=== PATIENT | female | born 1940 | race Caucasian/White ===

== ENCOUNTER 2017-02-14 08:51 | Emergency (ER) | payer MEDICARE ==
[~2017-02-14] VITALS: Ht 162.6 cm; Wt 90.7 kg
[~2017-02-14 08:51] MED LIST: ALLOPURINOL100 MG PO; ANTIVERT/2525 MG PO; ASPIRIN325 M1 PO; ATORVASTATIN CA40 MG PO; BACLOFEN10 MG PO; BUSPAR 10MG TAB10 MG PO; CARAFATE1 GM PO; COQ-10100 MG PO; CRESTOR10 MG PO; DOK COLACE100 MG PO; ESCITALOPRAM10 M1 PO; FISH OIL CONC1000 MG PO; FLAGYL 500MG.500 MG PO; FLORASTOR250 MG PO; FLUOXETINE20 MG PO; FOLIC ACID 1MG T1 MG PO; GABAPENTIN100 M1 PO; HYDROCHLOROTH12.5 M2 PO; IBU-8800 MG PO; JANUVIA100 MG PO; LEVOTHYROXINE0.05 M2 PO; LEVOXYL0.05 MG PO; LEXAPRO 10 MG T10 MG PO; LIPITOR20 M1 PO; LISINOPRIL10 MG PO; LOSARTAN POTASS1 TAB PO; LOSARTAN POTASS50 MG PO; LOVASTATIN20 MG PO; MECLIZINE HYD12.5 MG PO; MIRALAX17 GM/DOSE PO; MIRALAX17 GM/PACK PO; NAPROSYN500 M1 PO; OMNICEF 300 MG300 MG PO; PANTOPRAZOLE SO40 M1 PO; PRAVASTATIN 40M40 MG PO; PRILOSEC40 MG PO; PROPRANOLOL60 MG PO; SUPER-D3+ SOFT1 EACH PO; TAMIFLU75 MG PO; TRAZODONE50 MG PO; [UNRECOGNIZED DRUG - OTHER] PO
--- NOTE | 2017-02-14 09:09 | Emergency Room Report ---
History of Present Illness Time Seen by [id number] Presenting Problem in Triage Pt arrived:Walked Presenting Problem:CONSTIPATED FOR THE PAST WEEK. 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 N Clinical Suspician of Infection? N Mental Status: 1 - Regular (Normal Baseline) Sepsis Risk:Low Sepsis Risk Have you (or family members/close friends) recently traveled outside the [place]? N If Yes, where/when: Have you had exposure to infectious disease within the past month? N TB? Other? Specify: Source patient, RN notes reviewed, family, RN/MD Exam Limitations no limitations Comment This is a 76-year-old lady arriving to the emergency room with constipation for the past 7-10 days. Patient has tried various scvb-[id number] remedies without any success. She denies having history of constipation in the past. Patient denies any abdominal pain, any weight loss, any change in her medications recently. Patient has any recent travel or exposure to sick contacts. ALLERGIES Coded Allergies: codeine (Mild, 02/08/17) Home Medications Reported Medications Levothyroxine Sodium 0.05 MG PO DAILY #30 Escitalopram Oxalate 10 MG PO DAILY #30 Rosuvastatin Calcium (Crestor) 10 MG PO QHS Gabapentin (Gabapentin 100MG) 100 MG PO BID Ubidecarenone (Coq-10) 100 MG PO DAILY D3/Red Wine/Resveratrol/Malt (Super-D3+ Softgel) 1 EACH PO DAILY Docusate Sodium (DOK) 100 MG PO DAILY Polyethylene Glycol 3350 (Miralax) 17 GM PO PRN PRN constipation History Medical History General CAD? No Angina: No [place]: No Hypertension? Yes Hyperlipidemia? No CHF? No DVT? No PE? No COPD? No Asthma? Yes Anemia? No GERD? No Gastric ulcers? No GI Bleed? No Hernia? No Thyroid Problems? Yes Hypothyroidism? Yes CVA? Yes Seizures? No Diabetes? No Insulin Dependent: No Insulin Pump: No Home FSBS? No Renal Insuffiency? No End Stage Renal Disease? No UTI? No Stones? No BPH? No GB Disease: No Nephritic Syndrome? No Asplenia? No Hepatitis? No Sickle Cell Disease? No Arthritis? No Migraines? No Cataracts? No Glaucoma? No MRSA? No HIV? No TB? No Anxiety? Yes Depression? Yes Cancer? No More? Yes Additional hx: MUSCLE TREMMORS DIVERTICULITIS Immunization Hx DT/Tetanus 5-10 Years Ago Flu 2012-FSN Pneumonia Received In Past Surgical Hx Previous Surgery?Y Hysterect Gallbladd LT & RT SHOULDER REPLACE LEFT HIP REPLACEMENT Family History Family Hx Diabetes Yes CAD Yes Hypertension Yes Hyperlipidemia Yes Cancer No TB No Social History Smoking Hx Smoker: Former Smoker Tobacco: No Alcohol Alcohol: No Review of Systems All Other Systems Reviewed and Negative Gastrointestinal constipation Physical Exam Vital Signs Vital Signs Date Time Temp Pulse Resp B/P Pulse O2 O2 Flow FiO2 Ox Delivery Rate 02/14 1119 98.3 80 18 148/71 97 / 1115 98.3 80 18 148/71 97 /05 1006 99.3 110 16 117/49 95 06/05 0855 99.3 106 16 116/45 94 General Appearance normal appearance, WD/WN, mild distress Respiratory Status Yes: trachea midline, chest symmetrical, non tender chest. No: respiratory distress. Lung Sounds bilateral: normal breath sounds, lungs clear. 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 No Comment Patient had a bowel movement after enema. Advised patient to take over-the- counter stool softeners, Colace 100 mg twice per day, and follow-up with PCP if not better. Given patient's recent development of constipation she will warrant additional investigations, including a colonoscopy, while returning to her family physician's office for re-evaluation. Results/Orders Current Medication Orders Sig/Toña Start time Last Medication Dose Route Stop Time Status Admin Ondansetron HCl 4 MG ONCE ONE 02/14 1045 DC 02/14 PO 02/14 1046 1044 Ondansetron HCl 0 .STK-MED ONE 02/14 1042 DC .ROUTE Sodium Biphosphate/ 133 ML ONCE ONE 02/14 1015 DC /05 Sodium Phosphate ID 02/14 1016 1005 Sodium Biphosphate/ 0 .STK-MED ONE 02/14 1001 DC Sodium Phosphate ID Magnesium Citrate 0 .STK-MED ONE 02/14 0944 DC PO Magnesium Citrate 1 BOT ONCE ONE 02/14 0930 DC 02/14 PO 02/14 0931 0948 Orders Procedure Date/time Status ABDOMEN-FLAT & UPRIGHT 02/14 919 Active XRAY/CT/US XRAY/CT/US XRAY acute abdominal series- consistent with constipation, otherwise negative Departure Departure Time of Disposition 1052 Disposition DC Home or Self Care(routine) Clinical Impression Primary Impression: Constipation Qualifiers: Constipation type: unspecified constipation type Qualified Code: K59.00 - Constipation, unspecified Condition STABLE Referrals DOUGLAS BEAL: Today after leaving ER Is: Schedule a follow-up appointment Patient Instructions DI for Constipation Additional Instructions Please continue the stool softener as well as laxative (MiraLAX) as previously instructed. If no better within 24 hours please follow-up with Dr. Douglas Beal (GASTROENTROLOGIST). Discharge Counseling Counseled pt/family regarding diagnosis, test results, medications/RX, home care, follow up needs Comment Please continue the stool softener as well as laxative (MiraLAX) as previously instructed. If no better within 24 hours please follow-up with Dr. Douglas Beal (GASTROENTROLOGIST). ED Critical Care Critical Care No at [id number]
--- NOTE | 2017-02-14 09:09 | Emergency Room Report ---
History of Present Illness Time Seen by [id number] Presenting Problem in Triage Pt arrived:Walked Presenting Problem:CONSTIPATED FOR THE PAST WEEK. 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 N Clinical Suspician of Infection? N Mental Status: 1 - Regular (Normal Baseline) Sepsis Risk:Low Sepsis Risk Have you (or family members/close friends) recently traveled outside the [place]? N If Yes, where/when: Have you had exposure to infectious disease within the past month? N TB? Other? Specify: Source patient, RN notes reviewed, family, RN/MD Exam Limitations no limitations Comment This is a 76-year-old lady arriving to the emergency room with constipation for the past 7-10 days. Patient has tried various bwtc-cjj-hgfqhyi remedies without any success. She denies having history of constipation in the past. Patient denies any abdominal pain, any weight loss, any change in her medications recently. Patient has any recent travel or exposure to sick contacts. ALLERGIES Coded Allergies: codeine (Mild, 02/08/17) Home Medications Reported Medications Levothyroxine Sodium 0.05 MG PO DAILY #30 Escitalopram Oxalate 10 MG PO DAILY #30 Rosuvastatin Calcium (Crestor) 10 MG PO QHS Gabapentin (Gabapentin 100MG) 100 MG PO BID Ubidecarenone (Coq-10) 100 MG PO DAILY D3/Red Wine/Resveratrol/Malt (Super-D3+ Softgel) 1 EACH PO DAILY Docusate Sodium (DOK) 100 MG PO DAILY Polyethylene Glycol 3350 (Miralax) 17 GM PO PRN PRN constipation History Medical History General CAD? No Angina: No [place]: No Hypertension? Yes Hyperlipidemia? No CHF? No DVT? No PE? No COPD? No Asthma? Yes Anemia? No GERD? No Gastric ulcers? No GI Bleed? No Hernia? No Thyroid Problems? Yes Hypothyroidism? Yes CVA? Yes Seizures? No Diabetes? No Insulin Dependent: No Insulin Pump: No Home FSBS? No Renal Insuffiency? No End Stage Renal Disease? No UTI? No Stones? No BPH? No GB Disease: No Nephritic Syndrome? No Asplenia? No Hepatitis? No Sickle Cell Disease? No Arthritis? No Migraines? No Cataracts? No Glaucoma? No MRSA? No HIV? No TB? No Anxiety? Yes Depression? Yes Cancer? No More? Yes Additional hx: MUSCLE TREMMORS DIVERTICULITIS Immunization Hx DT/Tetanus 5-10 Years Ago Flu 2012-FSN Pneumonia Received In Past Surgical Hx Previous Surgery?Y Hysterect Gallbladd LT & RT SHOULDER REPLACE LEFT HIP REPLACEMENT Family History Family Hx Diabetes Yes CAD Yes Hypertension Yes Hyperlipidemia Yes Cancer No TB No Social History Smoking Hx Smoker: Former Smoker Tobacco: No Alcohol Alcohol: No Review of Systems All Other Systems Reviewed and Negative Gastrointestinal constipation Physical Exam Vital Signs Vital Signs Date Time Temp Pulse Resp B/P Pulse O2 O2 Flow FiO2 Ox Delivery Rate 02/14 1119 98.3 80 18 148/71 97 / 1115 98.3 80 18 148/71 97 /05 1006 99.3 110 16 117/49 95 06/05 0855 99.3 106 16 116/45 94 General Appearance normal appearance, WD/WN, mild distress Respiratory Status Yes: trachea midline, chest symmetrical, non tender chest. No: respiratory distress. Lung Sounds bilateral: normal breath sounds, lungs clear. 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 No Comment Patient had a bowel movement after enema. Advised patient to take over-the- counter stool softeners, Colace 100 mg twice per day, and follow-up with PCP if not better. Given patient's recent development of constipation she will warrant additional investigations, including a colonoscopy, while returning to her family physician's office for re-evaluation. Results/Orders Current Medication Orders Sig/Toña Start time Last Medication Dose Route Stop Time Status Admin Ondansetron HCl 4 MG ONCE ONE 02/14 1045 DC 02/14 PO 02/14 1046 1044 Ondansetron HCl 0 .STK-MED ONE 02/14 1042 DC .ROUTE Sodium Biphosphate/ 133 ML ONCE ONE 02/14 1015 DC /05 Sodium Phosphate IN 02/14 1016 1005 Sodium Biphosphate/ 0 .STK-MED ONE 02/14 1001 DC Sodium Phosphate IN Magnesium Citrate 0 .STK-MED ONE 02/14 0944 DC PO Magnesium Citrate 1 BOT ONCE ONE 02/14 0930 DC 02/14 PO 02/14 0931 0948 Orders Procedure Date/time Status ABDOMEN-FLAT & UPRIGHT 02/14 919 Active XRAY/CT/US XRAY/CT/US XRAY acute abdominal series- consistent with constipation, otherwise negative Departure Departure Time of Disposition 1052 Disposition DC Home or Self Care(routine) Clinical Impression Primary Impression: Constipation Qualifiers: Constipation type: unspecified constipation type Qualified Code: K59.00 - Constipation, unspecified Condition STABLE Referrals DOUGLAS BEAL: Today after leaving ER Is: Schedule a follow-up appointment Patient Instructions DI for Constipation Additional Instructions Please continue the stool softener as well as laxative (MiraLAX) as previously instructed. If no better within 24 hours please follow-up with Dr. Douglas Beal (GASTROENTROLOGIST). Discharge Counseling Counseled pt/family regarding diagnosis, test results, medications/RX, home care, follow up needs Comment Please continue the stool softener as well as laxative (MiraLAX) as previously instructed. If no better within 24 hours please follow-up with Dr. Douglas Beal (GASTROENTROLOGIST). ED Critical Care Critical Care No at 005
--- OUTSIDE RECORDS SUMMARY | 2017-02-14 09:09 | External Medical Summary Rpt ---
Author Author , Organization [employer] Address Unknown Phone Unavailable Care Team Providers Care Data Sme Name Role Phone Daija Ortez APRN, Unavailable Unavailable Daija Bennett MD, Unavailable Unavailable Pete Bennett MD Purpose Continuity of Care Document - 01-23-2013 through 2016 Problems Code Diagnosis DOS Provider Status E11.9 TYPE 2 11-30-2016 DIABETES MELLITUS WITHOUT COMPLICATIO NS K57.92 DIVERTICULI 11-30-2016 TIS OF INTESTINE, PART UNSPECIFIED , WITHOUT PERFORATION OR ABSCESS WITHOUT BLEEDING N39.0 URINARY 11-30-2016 TRACT INFECTION, SITE NOT SPECIFIED R10.9 UNSPECIFIED 11-30-2016 ABDOMINAL PAIN Z79.4 FCI 11-30-2016 (CURRENT) USE OF INSULIN Z87.891 PERSONAL 11-30-2016 HISTORY OF NICOTINE DEPENDENCE [id number] Infectious [facility] 272.4 Hyperlipide [facility] 276.8 Hypokalemia [facility] 401.[address] [place] [address] [facility] [id number] Depression [facility] [id number] History of [facility] [id number] Acute [place] urinary [facility] tract [facility] infection [id number] Diabetes [place] mellitus [facility] type 2 [facility] [id number] Gram [place] negative [facility] septicemia [facility] 564.09 [facility]84[facility] Acute renal [place] failure [facility] F41.9 ANXIETY DISORDER, UNSPECIFIED M54.30 SCIATICA, UNSPECIFIED SIDE R10.12 LEFT UPPER QUADRANT PAIN R10.32 LEFT LOWER QUADRANT PAIN S93.401A SPRAIN OF UNSPECIFIED LIGAMENT OF RIGHT ANKLE, INIT ENCNTR V12.59 History of [facility] Allergies, Adverse Reactions, Alerts Type Drug Allergy Adverse Reaction to Substance Substance Reaction Severity Codeine PT STATES SHE GETS Unknown NAUSEATED Medications Na ND Rx Da Fi Fi Am Da Di Ph RX Ph St me C No te ll ll ou ys ag ar # ys at rm s nt no ma ic us Or Da si cy ia de te s n re d MA 00 05 1 No PA 90 -1 P 41 6- Lo 32 98 20 ng 5 26 13 er MG 1 Ac TA ti BL ve ET CE 00 05 0 No FT 40 -1 RI 97 4- Lo AX 33 20 ng ON 30 13 er E 4 1 Ac GM ti ve AL So 00 05 0 No d 07 -1 Ch 47 4- Lo lo 10 20 ng ri 11 13 er de 3 Ac 0. ti 9% ve 50 ML Ad v So 00 05 3 No d 07 -1 Ch 47 4- Lo lo 10 20 ng ri 11 13 er de 3 Ac 0. ti 9% ve 50 ML Ad v Sa 63 05 3 No li 80 -1 ne 70 4- Lo 10 20 ng Fl 07 13 er us 5 h Ac 10 ti ML ve Sy ri ng e As 51 05 3 No pi 07 -1 ri 90 4- Lo n 00 20 ng 32 52 13 er 5M 0 G Ac Ta ti bl ve et Me 63 05 3 No tr 73 -1 on 90 4- Lo id 17 20 ng az 61 13 er ol 0 e Ac 50 ti 0M ve G Ta bl et So 00 05 0 No d 07 -1 Ch 47 4- Lo lo 10 20 ng ri 11 13 er de 3 Ac 0. ti 9% ve 50 ML Ad v So 00 05 3 No d 07 -1 Ch 47 4- Lo lo 10 20 ng ri 11 13 er de 3 Ac 0. ti 9% ve 50 ML Ad v SO 00 05 0 No DI 40 -1 UM 97 4- Lo 98 20 ng CH 30 13 er LO 9 RI Ac DE ti ve 0. 9% SO ERICK TI ON SEDA 00 05 3 No L 40 -1 20 97 4- Lo 90 20 ng ME 20 13 er Q 9 IN Ac ti D5 ve W- 0. 45 % NA CL Sa 63 05 3 No li 80 -1 ne 70 4- Lo 10 20 ng Fl 07 13 er us 5 h Ac 10 ti ML ve Sy ri ng e ON 00 05 0 No DA 64 -1 NS 16 4- Lo ET 08 20 ng RO 02 13 er N 5 HC Ac L ti 4 ve MG /2 ML AL VT 00 05 0 No OM 64 -1 ET 11 4- Lo JUAREZ 49 20 ng ZI 53 13 er NE 5 Ac 25 ti ve MG /M L AM PU L FS 05 3 No -1 BL 4- Lo OO 20 ng D 13 er PALACIOS GA Ac R ti ve AL 51 05 3 No LO 07 -1 PU 90 4- Lo RI 20 20 ng NO 52 13 er L 0 10 Ac 0 ti MG ve TA BL ET As 51 05 3 No pi 07 -1 ri 90 4- Lo n 00 20 ng 32 52 13 er 5M 0 G Ac Ta ti bl ve et Me 63 05 3 No tr 73 -1 on 90 4- Lo id 17 20 ng az 61 13 er ol 0 e Ac 50 ti 0M ve G Ta bl et HU 00 05 3 No MA 00 -1 LO 27 4- Lo G 51 20 ng 10 01 13 er 0 7 UN Ac IT ti S/ ve ML AL AN 00 05 3 No TA 11 -1 CI 30 4- Lo D [address] 74 13 er US 0 Ac AN ti TI ve -G RE LF LI Q LI 00 05 3 No PI 07 -1 TO 10 4- Lo R 15 20 ng 20 64 13 er 0 MG Ac ti TA ve BL ET Vital Signs 01-26-2013 18:30 Name Value Interpretat Reference Comment ion Range Body 97.7 [degF] Temperature BP 60 mm[Hg] Diastolic BP Systolic 115 mm[Hg] Heart 74 /min Rate/Pulse Respiratory 20 /min Rate 01-26-2013 16:00 Name Value Interpretat Reference Comment ion Range O2% 94 % 01-23-2013 04:33 Name Value Interpretat Reference Comment ion Range Height 152.40 cm Weight 103.108 kg Measured 01-23-2013 01:48 Name Value Interpretat Reference Comment ion Range Body 98.6 [degF] Temperature BP 86 mm[Hg] Diastolic BP Systolic 137 mm[Hg] Heart 98 /min Rate/Pulse O2% 95 % Respiratory 20 /min Rate Weight 00 [oz_av] Measured Results Labs Lab Lab Date Result Refere Interp Status Commen Order Detail nces retati t Range on Glucose BldC Glucomtr-nc (01-26-2013 16:55) Glucose 130 70-110 complet BldC 013 mg/dl ed Glucomt 16:55 r-mCnc Glucose BldC Glucomtr-mCnc (01-26-2013 12:19) Glucose 169 70-110 complet BldC 013 mg/dl ed Glucomt 12:19 r-[facility] Glucose BldC Glucomtr-[facility] (01-26-2013 06:41) Glucose 167 70-110 complet BldC 013 mg/dl ed Glucomt 06:41 r-[facility] Glucose BldC Glucomtr-[facility] (01-25-2013 20:15) Glucose 198 70-110 complet BldC 013 mg/dl ed Glucomt 20:15 r-[facility] Glucose dC Glucomtr-[facility] (01-25-2013 16:50) Glucose 158 70-110 complet BldC 013 mg/dl ed Glucomt 16:50 r-[facility] Glucose dC Glucomtr-[facility] (01-25-2013 11:11) Glucose 132 70-110 complet BldC 013 mg/dl ed Glucomt 11:11 r-[facility] COMPREHENSIVE METABOLIC PANEL (01-25-2013 06:25) Glucose 131 74-106 complet 013 mg/dL ed Bld-mCn 06:25 c BUN 8 mg/dL 7-18 complet Bld-mCn 013 ed c 06:25 Creat 1.1 0.6-1.0 complet SerPl-m 013 mg/dL ed Cnc 06:25 ESTIMAT 75 50-200 complet ED 013 ML/MIN ed CREATIN 06:25 INE CLEARAN CE GFR 49 59- complet (ESTIMA 013 ML/MIN ed KATHI) 06:25 Sodium 139 136-145 complet SerPl-s 013 mmoL/L ed Cnc 06:25 Potassi 3.7 3.5-5.1 complet um 013 mmoL/L ed SerPl-s 06:25 Cnc Chlorid 107 98-107 complet e 013 mmoL/L ed SerPl-s 06:25 Cnc CO2 25 21.0-32 complet SerPl-s 013 mmoL/L .0 ed Cnc 06:25 Calcium 8.0 8.5-10. complet 013 mg/dL 1 ed SerPl-m 06:25 Cnc Prot 05-16-2 6.4 6.4-8.2 complet SerPl-m 013 gm/dL ed Cnc 06:25 Albumin 05-16-2 2.7 3.4-5.0 complet 013 gm/dL ed SerPl-m 06:25 Cnc Globuli 05-16-2 3.7 1.3-3.2 complet n 013 gm/dL ed Ser-mCn 06:25 c Albumin 05-16-2 0.7 UNK 1.1-1.8 complet /Glob 013 ed SerPl-m 06:25 Rto Bilirub 05-16-2 0.2 0.2-1.0 complet 013 mg/dL ed SerPl-m 06:25 Cnc AST 05-16-2 10 U/L 15-37 complet SerPl-c 013 ed Cnc 06:25 ALT 05-16-2 30 U/L 30-65 complet SerPl-c 013 ed Cnc 06:25 ALP 05-16-2 127 U/L 50-136 complet SerPl-c 013 ed Cnc 06:25 CBC with AUTO DIFF (01-25-2013 06:25) WBC # 05-16-2 5.6 4.8-10. complet Bld 013 K/MM3 8 ed Auto 06:25 RBC # 05-16-2 3.67 4.2-5.4 complet Bld 013 M/mm3 ed Auto 06:25 Hgb 05-16-2 11.7 12.2-16 complet Bld-mCn 013 g/dL .2 ed c 06:25 Hct Fr 05-16-2 36.5 % 37.0-47 complet Bld 013 .0 ed 06:25 MCV RBC 05-16-2 99.4 fl 82.2-97 complet 013 .8 ed 06:25 MCH RBC 05-16-2 32.0 pg 27-31.2 complet Qn 013 ed Auto 06:25 MEAN 05-16-2 32.2 31.8-35 complet CORPUSC 013 g/dl .4 ed ULAR 06:25 HGB CONC RDW RBC 05-16-2 14.7 % 11.5-17 complet Auto 013 .5 ed 06:25 Platele 05-16-2 205 142-424 complet t Bld 013 K/mm3 ed Ql 06:25 Manual MEAN 05-16-2 8.4 fl 7.4-10. complet PLATELE 013 4 ed T 06:25 VOLUME Granulo 05-16-2 41.0 % 37.0-80 complet cytes 013 .0 ed Fr Bld 06:25 Auto LYMPH % 05-16-2 45.8 % 10-50.0 complet 013 ed 06:25 Monocyt 05-16-2 6.7 % 1.7-9.3 complet es Fr 013 ed Bld 06:25 Auto Eosinop 05-16-2 6.1 % 0.1-12. complet hil Fr 013 0 ed Bld 06:25 Auto Basophi 05-16-2 0.3 % 0.1-2.0 complet ls Fr 013 ed Bld 06:25 Auto Granulo 05-16-2 2.3 1.8-7.8 complet cytes # 013 K/mm3 ed Bld 06:25 Auto Lymphoc 05-16-2 2.6 0.7-4.5 complet ytes Fr 013 K/mm3 ed Bld 06:25 Auto Monocyt 05-16-2 0.4 0.1-1.0 complet es # 013 K/mm3 ed Bld 06:25 Auto Eosinop 05-16-2 0.4 0.0-0.4 complet hil # 013 K/mm3 ed Bld 06:25 Auto Basophi 05-16-2 0.0 0-0.2 complet ls # 013 K/MM3 ed Bld 06:25 Auto Glucose [facility] Glucom-[facility] (01-25-2013 06:13) Glucose 05-16-2 146 70-110 complet BldC 013 mg/dl ed Glucomt 06:13 r-[facility] Glucose dC Glucomtr-[facility] (01-24-2013 20:17) Glucose 05-15-2 162 70-110 complet BldC 013 mg/dl ed Glucomt 20:17 r-[facility] Glucose dC Glucomtr-[facility] (01-24-2013 11:44) Glucose 05-15-2 131 70-110 complet BldC 013 mg/[facility]OLIC PANEL (01-24-2013 06:25) Glucose 05-15-2 158 74-106 complet 013 mg/dL ed Bld-n 06:25 c BUN 05-15-2 11 7-18 complet Bld-mCn 013 mg/dL ed c 06:25 Creat 01-24-2 1.1 0.6-1.0 complet SerPl-m 013 mg/dL ed Cnc 06:25 ESTIMAT -15-2 75 50-200 complet ED 013 ML/MIN ed CREATIN 06:25 INE CLEARAN CE GFR 01-24- 49 59- complet (ESTIMA 013 ML/MIN ed KATHI) 06:25 Sodium 01-24-2 138 136-145 complet SerPl-s 013 mmoL/L ed Cnc 06:25 Potassi 01-24-2 3.4 3.5-5.1 complet um 013 mmoL/L ed SerPl-s 06:25 Cnc Chlorid 01-24- 105 98-107 complet e 013 mmoL/L ed SerPl-s 06:25 Cnc CO2 01-24- 27 21.0-32 complet SerPl-s 013 mmoL/L .0 ed Cnc 06:25 Calcium 01-24-2 7.9 8.5-10. complet 013 mg/dL 1 ed SerPl-m 06:25 Cnc Prot 01-24-2 6.5 6.4-8.2 complet SerPl-m 013 gm/dL ed Cnc 06:25 Albumin 01-24-2 2.8 3.4-5.0 complet 013 gm/dL ed SerPl-m 06:25 Cnc GLOBULI 01-24-2 3.7 1.3-3.2 complet N 013 gm/dL ed 06:25 ALB/ANUJ 01-24-2 0.8 UNK 1.1-1.8 complet B RATIO 013 ed 06:25 Bilirub 01-24-2 0.4 0.2-1.0 complet 013 mg/dL ed SerPl-m 06:25 Cnc AST 01-24-2 10 U/L 15-37 complet SerPl-c 013 ed Cnc 06:25 ALT 01-24-2 32 U/L 30-65 complet SerPl-c 013 ed Cnc 06:25 ALP 01-24-2 139 U/L 50-136 complet SerPl-c 013 ed Cnc 06:25 CBC with AUTO DIFF (01-24-2013 06:25) WBC # 05-15-2 8.2 4.8-10. complet Bld 013 K/MM3 8 ed Auto 06:25 RBC # 05-15-2 3.89 4.2-5.4 complet Bld 013 M/mm3 ed Auto 06:25 Hgb 05-15-2 12.3 12.2-16 complet Bld-mCn 013 g/dL .2 ed c 06:25 Hct Fr 05-15-2 38.0 % 37.0-47 complet Bld 013 .0 ed 06:25 MCV RBC 05-15-2 97.6 fl 82.2-97 complet 013 .8 ed 06:25 MCH RBC 05-15-2 31.7 pg 27-31.2 complet Qn 013 ed Auto 06:25 MEAN 05-15-2 32.4 31.8-35 complet CORPUSC 013 g/dl .4 ed ULAR 06:25 HGB CONC RDW RBC 05-15-2 14.6 % 11.5-17 complet Auto 013 .5 ed 06:25 Platele 05-15-2 213 142-424 complet t Bld 013 K/mm3 ed Ql 06:25 Manual MEAN 05-15-2 8.0 fl 7.4-10. complet PLATELE 013 4 ed T 06:25 VOLUME Granulo 05-15-2 66.1 % 37.0-80 complet cytes 013 .0 ed Fr Bld 06:25 Auto LYMPH % 05-15-2 24.2 % 10-50.0 complet 013 ed 06:25 Monocyt 05-15-2 6.1 % 1.7-9.3 complet es Fr 013 ed Bld 06:25 Auto Eosinop 05-15-2 3.4 % 0.1-12. complet hil Fr 013 0 ed Bld 06:25 Auto Basophi 05-15-2 0.2 % 0.1-2.0 complet ls Fr 013 ed Bld 06:25 Auto Granulo 05-15-2 5.5 1.8-7.8 complet cytes # 013 K/mm3 ed Bld 06:25 Auto Lymphoc 05-15-2 2.0 0.7-4.5 complet ytes Fr 013 K/mm3 ed Bld 06:25 Auto Monocyt 05-15-2 0.5 0.1-1.0 complet es # 013 K/mm3 ed Bld 06:25 Auto Eosinop 05-15-2 0.3 0.0-0.4 complet hil # 013 K/mm3 ed Bld 06:25 Auto Basophi 0.0 0-0.2 complet ls # 013 K/MM3 ed Bld 06:25 Auto Glucose BldC Glucomtr-mCnc (01-24-2013 06:23) Glucose 156 70-110 complet BldC 013 mg/dl ed [facility]t [facility] T[facility] A+B Stl Ql (01-23-2013 22:50) C dif 01-23- NOT NOT complet Tox A+B 013 DETECTE DETECTE ed Stl Ql 22:50 D Glucose BldC Glucomtr-[facility] (01-23-2013 20:18) Glucose 137 70-110 complet BldC 013 mg/dl ed [facility]comt 20:[facility] (01-23-2013 16:47) Glucose 120 70-110 complet BldC 013 mg/dl ed Glucomt 16:47 r-[facility] BASIC METABOLIC PANEL (01-23-2013 15:00) Glucose 126 74-106 complet 013 mg/dL ed Bld-mCn 15:00 c BUN 16 7-18 complet Bld-mCn 013 mg/dL ed c 15:00 Creat 1.2 0.6-1.0 complet SerPl-m 013 mg/dL ed Cnc 15:00 ESTIMAT 69 50-200 complet ED 013 ML/MIN ed CREATIN 15:00 INE CLEARAN CE GFR 44 59- complet (ESTIMA 013 ML/MIN ed KATHI) 15:00 Sodium 137 136-145 complet SerPl-s 013 mmoL/L ed Cnc 15:00 Potassi 3.4 3.5-5.1 complet um 013 mmoL/L ed SerPl-s 15:00 Cnc Chlorid 102 98-107 complet e 013 mmoL/L ed SerPl-s 15:00 Cnc CO2 28 21.0-32 complet SerPl-s 013 mmoL/L .0 ed Cnc 15:00 Calcium 05-14-2 7.8 8.5-10. complet 013 mg/dL 1 ed SerPl-m 15:00 Cnc Glucose [facility] Glucom-[facility] (01-23-2013 12:06) Glucose 05-14-2 166 70-110 complet BldC 013 mg/dl ed Glucomt 12:06 r-[facility] C dif Tox A+B Stl Ql (01-23-2013 11:35) C dif 05-14-2 NOT NOT complet Tox A+B 013 DETECTE DETECTE ed Stl Ql 11:35 D Glucose [facility] Glucom-[facility] (01-23-2013 06:19) Glucose 05-14-2 133 70-110 complet BldC 013 mg/dl ed Glucomt 06:19 r-[facility] URINALYSIS/COMPLETE (01-23-2013 02:20) URINE 05-14-2 YELLOW YELLOW complet COLOR 013 ed 02:20 URINE 05-14-2 CLEAR CLEAR complet APPEARA 013 ed NCE 02:20 URINE 05-14-2 NEGATIV NEG complet GLUCOSE 013 E ed - 02:20 DIPSTIC K URINE 05-14-2 NEGATIV NEG complet BILIRUB 013 E ed IN - 02:20 DIPSTIC K URINE 05-14-2 NEGATIV NEG complet KETONE 013 E mg/dL ed 02:20 URINE 05-14-2 1.020 1.005-1 complet SPECIFI 013 UNK .030 ed C 02:20 GRAVITY URINE 05-14-2 3+ NEG complet BLOOD 013 ed 02:20 URINE 05-14-2 6.0 UNK 5.0-8.5 complet PH 013 ed 02:20 URINE 05-14-2 TRACE NEG complet PROTEIN 013 mg/dL ed - 02:20 DIPSTIC K URINE 05-14-2 0.2 NEG complet UROBILI 013 E.U./dL ed NOGEN - 02:20 DIPSTIC K URINE 05-14-2 POSITIV NEG complet NITRATE 013 E ed - 02:20 DIPSTIC K URINE 05-14-2 2+ NEG complet LEUK 013 ed ESTERAS 02:20 E URINE 05-14-2 20-50 0 complet RBC 013 rbc/hpf ed 02:20 URINE 05-14-2 20-50 O complet WBC 013 wbc/hpf ed 02:20 URINE 05-14-2 20-50 0-5 complet SQUAMOU 013 #/hpf ed S CELLS 02:20 URINE 4+ O complet BACTERI 013 ed A 02:20 COMPREHENSIVE METABOLIC PANEL (01-23-2013 02:03) Glucose 01-23- 154 74-106 complet 013 mg/dL ed Bld-mCn 02:03 c BUN 19 7-18 complet Bld-mCn 013 mg/dL ed c 02:03 Creat 1.3 0.6-1.0 complet SerPl-m 013 mg/dL ed Cnc 02:03 ESTIMAT 63 50-200 complet ED 013 ML/MIN ed CREATIN 02:03 INE CLEARAN CE GFR 40 59- complet (ESTIMA 013 ML/MIN ed KATHI) 02:03 Sodium 136 136-145 complet SerPl-s 013 mmoL/L ed Cnc 02:03 Potassi 3.3 3.5-5.1 complet um 013 mmoL/L ed SerPl-s 02:03 Cnc Chlorid 100 98-107 complet e 013 mmoL/L ed SerPl-s 02:03 Cnc CO2 27 21.0-32 complet SerPl-s 013 mmoL/L .0 ed Cnc 02:03 Calcium 8.6 8.5-10. complet 013 mg/dL 1 ed SerPl-m 02:03 Cnc Prot 8.1 6.4-8.2 complet SerPl-m 013 gm/dL ed Cnc 02:03 Albumin 3.6 3.4-5.0 complet 013 gm/dL ed SerPl-m 02:03 Cnc Globuli 4.5 1.3-3.2 complet n 013 gm/dL ed Ser-mCn 02:03 c Albumin 0.8 UNK 1.1-1.8 complet /Glob 013 ed SerPl-m 02:03 Rto Bilirub 0.4 0.2-1.0 complet 013 mg/dL ed SerPl-m 02:03 Cnc AST 17 U/L 15-37 complet SerPl-c 013 ed Cnc 02:03 ALT 05-14-2 41 U/L 30-65 complet SerPl-c 013 ed Cnc 02:03 ALP 05-14-2 156 U/L 50-136 complet SerPl-c 013 ed Cnc 02:03 Amylase SerPl-cCnc (01-23-2013 02:03) Amylase 05-14-2 30 U/L 25-115 complet 013 ed SerPl-c 02:03 Cnc LIPASE (01-23-2013 02:03) LIPASE -14-2 72 U/L 73-393 complet 013 ed 02:03 CBC with AUTO DIFF (01-23-2013 02:03) WBC # 05-14-2 8.2 4.8-10. complet Bld 013 K/MM3 8 ed Auto 02:03 RBC # 05-14-2 4.54 4.2-5.4 complet Bld 013 M/mm3 ed Auto 02:03 Hgb -14-2 14.6 12.2-16 complet Bld-mCn 013 g/dL .2 ed c 02:03 Hct Fr -14-2 44.3 % 37.0-47 complet Bld 013 .0 ed 02:03 MCV RBC -14-2 97.6 fl 82.2-97 complet 013 .8 ed 02:03 MCH RBC -14-2 32.2 pg 27-31.2 complet Qn 013 ed Auto 02:03 MEAN -14-2 33.0 31.8-35 complet CORPUSC 013 g/dl .4 ed ULAR 02:03 HGB CONC RDW RBC -14-2 15.0 % 11.5-17 complet Auto 013 .5 ed 02:03 Platele -14-2 258 142-424 complet t Bld 013 K/mm3 ed Ql 02:03 Manual MEAN -14-2 8.4 fl 7.4-10. complet PLATELE 013 4 ed T 02:03 VOLUME Granulo -14-2 68.8 % 37.0-80 complet cytes 013 .0 ed Fr Bld 02:03 Auto LYMPH % -14-2 22.3 % 10-50.0 complet 013 ed 02:03 Monocyt 05-14-2 7.1 % 1.7-9.3 complet es Fr 013 ed Bld 02:03 Auto Eosinop -14-2 1.6 % 0.1-12. complet hil Fr 013 0 ed Bld 02:03 Auto Basophi 14-2 0.2 % 0.1-2.0 complet ls Fr 013 ed Bld 02:03 Auto Granulo 14-2 5.6 1.8-7.8 complet cytes # 013 K/mm3 ed Bld 02:03 Auto Lymphoc 14-2 1.8 0.7-4.5 complet ytes Fr 013 K/mm3 ed Bld 02:03 Auto Monocyt 01-23-2 0.6 0.1-1.0 complet es # 013 K/mm3 ed Bld 02:03 Auto Eosinop 01-23-2 0.1 0.0-0.4 complet hil # 013 K/mm3 ed Bld 02:03 Auto Basophi 14-2 0.0 0-0.2 complet ls # 013 K/MM3 ed Bld 02:03 Auto Encounters Encounter Start End Date Code Location Performer Type Date Inpatient IMP Adalberto Bennett MD ([place]) 3 02:34 3 18:25 [facility]
--- OUTSIDE RECORDS SUMMARY | 2017-02-14 09:09 | External Medical Summary Rpt ---
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 Name Role Phone Daija Ortez APRN, Unavailable [...] SPECIFIED R10.9 UNSPECIFIED 11-30-2016 ABDOMINAL PAIN Z79.4 FDC 11-30-2016 (CURRENT) USE OF INSULIN Z87.891 PERSONAL 11-30-2016 HISTORY OF NICOTINE DEPENDENCE [id number] Infectious [facility] 272.4 Hyperlipide [facility] 276.8 Hypokalemia [facility] 401.9 Essential [place] hypertensio [facility] [id number] Depression [facility] [id number] History of [facility] [id number] Acute [place] urinary [facility] tract [facility] infection [id number] Diabetes [place] mellitus [facility] type 2 [facility] [id number] Gram [place] negative [facility] septicemia [facility] 564.09 [facility] [place] [facility] renal [place] failure [facility] F41.9 ANXIETY DISORDER, UNSPECIFIED M54.30 SCIATICA, UNSPECIFIED SIDE R10.12 LEFT UPPER QUADRANT PAIN R10.32 LEFT LOWER QUADRANT PAIN S93.401A SPRAIN OF UNSPECIFIED LIGAMENT OF RIGHT ANKLE, INIT ENCNTR V12.59 History of [facility] Allergies, Adverse Reactions, Alerts Type [...] complet BldC 013 mg/dl ed Glucomt 12:19 r-[facility] Glucose BldC Glucomtr-[facility] (01-26-2013 06:41) Glucose 167 70-110 complet BldC 013 mg/dl ed Glucomt 06:41 r-[facility] Glucose BldC Glucomtr-[facility] (01-25-2013 20:15) Glucose 198 70-110 complet BldC 013 mg/dl ed Glucomt 20:15 r-[facility] Glucose dC Glucomtr-[facility] (01-25-2013 16:50) Glucose 158 70-110 complet BldC 013 mg/dl ed Glucomt 16:50 r-[facility] Glucose dC Glucomtr-[facility] (01-25-2013 11:11) Glucose 132 70-110 complet BldC 013 mg/dl ed Glucomt 11:11 r-[facility] COMPREHENSIVE METABOLIC PANEL (01-25-2013 06:25) Glucose 131 [...] 013 K/MM3 ed Bld 06:25 Auto Glucose [facility] Glucom-[facility] (01-25-2013 06:13) Glucose 05-16-2 146 70-110 complet BldC 013 mg/dl ed Glucomt 06:13 r-[facility] Glucose dC Glucomtr-[facility] (01-24-2013 20:17) Glucose 05-15-2 162 70-110 complet BldC 013 mg/dl ed Glucomt 20:17 r-[facility] Glucose dC Glucomtr-[facility] (01-24-2013 11:44) Glucose 05-15-2 131 70-110 complet BldC 013 mg/dl ed [facility]comt 11:44 [facility]OLIC PANEL (01-24-2013 06:25) Glucose [...] complet BldC 013 mg/dl ed [facility]t 06:23 [facility] C dif Tox A+B Stl Ql (01-23-2013 22:50) C dif 01-23- NOT NOT complet Tox A+B 013 DETECTE DETECTE ed Stl Ql 22:50 D Glucose BldC Glucomtr-[facility] (01-23-2013 20:18) Glucose 137 70-110 complet BldC 013 mg/dl ed [facility]comt 20:[facility] (01-23-2013 16:47) Glucose 120 70-110 complet BldC 013 mg/dl ed Glucomt 16:47 r-[facility] BASIC METABOLIC PANEL (01-23-2013 15:00) Glucose 126 [...] mg/dL 1 ed SerPl-m 15:00 Cnc Glucose [facility] Glucom-[facility] (01-23-2013 12:06) Glucose 05-14-2 166 70-110 complet BldC 013 mg/dl ed Glucomt 12:06 r-[facility] C dif Tox A+B Stl Ql (01-23-2013 11:35) C dif 05-14-2 NOT NOT complet Tox A+B 013 DETECTE DETECTE ed Stl Ql 11:35 D Glucose [facility] Glucom-[facility] (01-23-2013 06:19) Glucose 05-14-2 133 70-110 complet BldC 013 mg/dl ed Glucomt 06:19 r-[facility] URINALYSIS/COMPLETE (01-23-2013 02:20) URINE 05-14-2 YELLOW YELLOW [...] Bennett MD (IN) 3 02:34 3 18:25 [facility]
--- OUTSIDE RECORDS SUMMARY | 2017-02-14 09:10 | External Medical Summary Rpt ---
Demographics Preferred Language Dominican Marital Status Unknown Cheondoism Affiliation Unknown Race Unknown Ethnic Group Unknown Author Author , Organization [employer] Address Unknown Phone Unavailable Purpose Continuity of Care Document - 07-23-2014 through 2016 Immunization Name Date Route CVX Reacti Commen Provid Is Given on t er Refuse d Influe Histor 45102 No nza, 2015 ical UF Inform ation - Source Unspec ified PCV13 Histor A95542 No 2015 ical Inform ation - Source Unspec ified Influe Intram 141 Histor P39380 No nza, 2014 uscula ical Season r Inform al ation - Source Unspec ified Influe Intram 135 Histor [place] No nza, 2013 uscula ical High r Inform Dose ation - Source Unspec ified
--- OUTSIDE RECORDS SUMMARY | 2017-02-14 09:10 | External Medical Summary Rpt ---
Author Author [employer], [employer] Organization [employer] Address Unknown Phone Unavailable Payers Section Payer Plan Name Group ID Member ID Coverage Coverage Start End Date Date COMMERCIA [id number]^COM PLAN J [id number] No No L GENERIC MERCIAL 5 informati informati GENERIC on in on in source source data data MEDICARE [id number]^MED [id number] No No ICARE [place] 03 informati informati PART A on in on in AND B source source data data
--- OUTSIDE RECORDS SUMMARY | 2017-02-14 09:10 | External Medical Summary Rpt ---
Demographics Preferred Language Hungarian Marital Status Unknown Faith Affiliation Unknown Race Unknown Ethnic Group Unknown Author Author , Organization [employer] Address Unknown Phone Unavailable Purpose Continuity of Care Document - 07-23-2014 through 2016 Immunization Name Date Route CVX Reacti Commen Provid Is Given on t er Refuse d Influe Histor 44236 No nza, 2015 ical UF Inform ation - Source Unspec ified PCV13 Histor [id number] No 2015 ical Inform ation - Source Unspec ified Influe Intram 141 Histor Q30419 No nza, 2014 uscula ical Season r Inform al ation - Source Unspec ified Influe Intram 135 Histor [place] No nza, 2013 uscula ical High r Inform Dose ation - Source Unspec ified
--- OUTSIDE RECORDS SUMMARY | 2017-02-14 09:10 | External Medical Summary Rpt ---
Author Author [employer], [employer] Organization [employer] Address Unknown Phone Unavailable Payers Section Payer Plan Name Group ID Member ID Coverage Coverage Start End Date Date COMMERCIA [id number]^COM PLAN J [id number] No No L GENERIC MERCIAL 5 informati informati GENERIC on in on in source source data data MEDICARE [id number]^MED [id number] No No ICARE [place] 03 informati informati PART A on in on in AND B source source data data
[2017-02-14] MEDS ORDERED: MIRALAX17 GM/PACK PO (09:14)
[2017-02-14 11:19] VITALS: BP 148/71
--- NOTE | 2017-02-14 12:11 | RADIOLOGY REPORT PS360 ---
ABDOMEN-FLAT UPRIGHT HISTORY: constipation, abdominal pain ORDERING PHYSICIAN: Nawaf Martínez MD PATIENT AGE: 76 years COMPARISON: None FINDINGS: There is nonspecific nonobstructive bowel gas pattern. Atelectatic changes are present in the right lung base. Multiple rectangular shaped opacities are present in the pelvis and right lower quadrant and may be due to angina suggested medication. No free air. No urolithiasis. Prior left hip replacement with bipolar prosthesis. Degenerative change lumbar spine. IMPRESSION: Nonspecific nonacute findings
== END 2017-02-14 11:20 | disposition home or self-care (01) ==
LOC: ER 08:51
DX: K59.00 Constipation, unspecified (principal); I10 Essential (primary) hypertension; F41.8 Other specified anxiety disorders; Z87.891 Personal history of nicotine dependence

== ENCOUNTER → 2017-05-31 | Outpatient (CLI) | payer MEDICARE ==
[~2017-05-31] MED LIST changes: +ANUSOL-HC2.5% EX
== END ==
LOC: RAD 08:14
DX: Z12.31 Encounter for screening mammogram for malignant neoplasm of breast (principal)
CPT/HCPCS: G0202

== ENCOUNTER → 2017-08-26 | Outpatient (CLI) | payer MEDICARE ==
[2017-08-26 14:55] LABS: HEMOGLOBIN 14.6 g/dL (12.2-16.2); LYMPH # 3.1 K/mm3 (0.7-4.5); LYMPH % 40.8 % (10-50.0)
[2017-08-26 16:12] LABS: BUN 15 mg/dL (7-18)
[2017-08-26 19:24] LABS: GFR (ESTIMATED) 48 ML/MIN (59-)
== END ==
LOC: LAB 12:42
PROVIDERS: Internal Medicine Adolescent Medicine
DX: E78.5 Hyperlipidemia, unspecified (principal); E11.9 Type 2 diabetes mellitus without complications